=== PATIENT | male | born 2000 | race Caucasian/White ===

== ENCOUNTER 2022-03-12 09:55 | Emergency (ER) | payer OTHER ==
[~2022-03-12] VITALS: Ht 177.8 cm; Wt 88.6 kg
[2022-03-12 10:03] VITALS: BP 123/81; TEMP 97.7
[2022-03-12] MEDS ORDERED: ULTRAM 50MG TAB50 MG PO (11:10)
[2022-03-12 11:24] VITALS: PULSE 73
== END 2022-03-12 11:25 | disposition home or self-care (01) ==
LOC: COL.ER 09:55
DX: S46.812A Strain of other muscles, fascia and tendons at shoulder and upper arm level, left arm, initial encounter (principal); F17.210 Nicotine dependence, cigarettes, uncomplicated; Z28.310 Unvaccinated for COVID-19; Z87.81 Personal history of (healed) traumatic fracture; X50.0XXA Overexertion from strenuous movement or load, initial encounter; Y92.59 Other trade areas as the place of occurrence of the external cause; Y99.0 Civilian activity done for income or pay